=== PATIENT | female | born 2000 | race African-American/Black ===

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

== ENCOUNTER 2019-05-03 23:25 | Emergency (ER) | payer SELFPAY ==
[2019-05-04] MEDS ORDERED: ACETAMINOPHEN 500 MG TAB ONE (00:59)
[2019-05-04] MEDS ORDERED: TETANUS & DIPHTHERIA TOX,ADULT 0.5 ML VIAL ONE (00:59)
[2019-05-04] MEDS ORDERED: IBUPROFEN 400 MG TAB ONE (00:59)
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
[2019-05-04 02:05] VITALS: TEMP 97.8; O2SAT 100
[2019-05-04 02:06] VITALS: BP 106/65
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
== END 2019-05-04 01:44 | disposition home or self-care (01) ==
LOC: ER 23:25
DX: S06.0X9A Concussion with loss of consciousness of unspecified duration, initial encounter (principal); Y04.2XXA Assault by strike against or bumped into by another person, initial encounter; Y93.9 Activity, unspecified; Y92.29 Other specified public building as the place of occurrence of the external cause; F17.290 Nicotine dependence, other tobacco product, uncomplicated
CPT/HCPCS: 70450; 70486; 72125; 76377; 90471; 90714; 99284

== ENCOUNTER 2020-02-29 01:25 | Emergency (ER) | payer SELFPAY ==
[2020-02-29 02:05] LABS: Absolute Lymphocytes (CBC) 2.8 K/uL (0.7-4.9)
[2020-02-29 02:13] LABS: BUN Blood Urea Nitrogen 15 mg/dL (7-18); Bicarbonate 25 mmol/L (21-32); Glucose Level 107 mg/dL (74-106); Potassium 3.4 mmol/L (3.5-5.1); Sodium Level 143 mmol/L (136-145)
[2020-02-29 02:16] LABS: Hematocrit 28.1 % (36.0-45.0); Lymphocytes % 34.8 % (15.3-44.8); MPV 10.1 fL (7.6-11.3)
[2020-02-29 02:37] LABS: Anisocytosis 1+; Blood Morphology Comment NOTED (NOT SEEN); Elliptocytes 1+; Hypochromasia 2+; Platelet Estimate ADEQ; Urine White Blood Cell Casts OK
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
--- NOTE | 2020-02-29 02:43 | ER ---
Nurse's Notes [facility] Name: Kristina Davison Age: 19 yrs Sex: Female : 2000 Arrival Date: 02/29/2020 Time: 01:26 Bed 20 Private MD: Diagnosis: Abnormal uterine and vaginal bleeding, unspecified Presentation: 02/28 01:37 Chief complaint: Patient states: she has been having an unusual period lasting over 2 bb weeks and getting heavier. Pt denies possibility of and denies dizziness. Coronavirus screen: At this time, the client does not indicate any symptoms associated with coronavirus-19. Ebola Screen: No symptoms or risks identified at this time. Initial Sepsis Screen: Does the patient meet any 2 criteria? No. Patient's initial sepsis screen is negative. Does the patient have a suspected source of infection? No. Patient's initial sepsis screen is negative. Risk Assessment: Do you want to hurt yourself or someone else? Patient reports no desire to harm self or others. Onset of symptoms was January 2020. 01:37 Method Of Arrival: Ambulatory bb 01:37 Acuity: MIGUEL A 3 bb Triage Assessment: 01:40 General: Appears in no apparent distress. Behavior is calm, cooperative. Pain: bb Complains of pain in abdomen Quality of pain is described as crampy. Neuro: Level of Consciousness is awake, alert, obeys commands, Oriented to person, place, time, situation. Cardiovascular: No deficits noted. : Reports vaginal bleeding that is heavy flow. 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 - Social history:: Smoking status: Reported history of juuling and/or vaping. Screenin:51 Abuse screen: Denies threats or abuse. Denies injuries from another. Nutritional ao screening: No deficits noted. Tuberculosis screening: No symptoms or risk factors identified. Fall Risk None identified. Assessment: 01:50 General: Appears in no apparent distress. comfortable, obese. Pain: Denies pain. Neuro: ao Level of Consciousness is awake, alert, obeys commands, Oriented to person, place, time, situation, Appropriate for age Moves all extremities. Full function Speech is normal, Facial symmetry appears normal. Cardiovascular: Capillary refill < 3 seconds Patient's skin is warm and dry. Respiratory: Airway is patent Respiratory effort is even, unlabored, Respiratory pattern is regular, symmetrical. GI: Abdomen is obese. : Reports vaginal bleeding that is. : Reports. EENT: No signs and/or symptoms were reported regarding the EENT system. Derm: No signs and/or symptoms reported regarding the dermatologic system. Musculoskeletal: No signs and/or symptoms reported regarding the musculoskeletal system. 02:20 Reassessment: Patient appears in no apparent distress at this time. Patient and/or ao family updated on plan of care and expected duration. Pain level reassessed. 03:08 Reassessment: Patient appears in no apparent distress at this time. Patient and/or ao family updated on plan of care and expected duration. Pain level reassessed. Dc instructions given to patient. Pt agree with POC and to follow up. Vital Signs: 01:37 BP 103 / 54; Pulse 95; Resp 16 S; Temp 99.1(O); Pulse Ox 96% on R/A; Weight 113.4 kg bb (R); Height 5 ft. 2 in. (157.48 cm) (R); Pain 6/10; 03:08 BP 120 / 58; Pulse 92; Resp 16; Pulse Ox 98% ; ao 01:37 Body Mass Index 45.73 (113.40 kg, 157.48 cm) bb ED Course: 01:26 Patient arrived in ED. cl3 01:35 Cee Solitario FNP-C is PHCP. kb 01:35 Jose Ching MD is Attending Physician. kb 01:40 Triage completed. bb 01:40 Arm band placed on Patient placed in an exam room, on a stretcher, on pulse oximetry. bb 01:50 Eddei Singh, ALVA is Primary Nurse. ao 01:50 Basic Metabolic Panel Sent. ao 01:50 CBC with Diff Sent. ao 01:52 Patient has correct armband on for positive identification. Pulse ox on. NIBP on. ao 02:10 Inserted saline lock: 20 gauge in left forearm, using aseptic technique. ao 03:08 No provider procedures requiring assistance completed. IV discontinued, intact, ao bleeding controlled, No redness/swelling at site. Pressure dressing applied. Administered Medications: No medications were administered Outcome: 02:42 Discharge ordered by MD. silverman 03:08 Discharged to home ambulatory. ao 03:08 Condition: good 03:08 Discharge instructions given to patient, Instructed on discharge instructions, follow up and referral plans. Demonstrated understanding of instructions, follow-up care, medications. 03:09 Patient left the ED. ao Signatures: Cee Solitario, RODOLFO-C THERMODYNAMICS PROFESSOR-Kaycee Shepherd RN RN Eddie Burgess RN RN Teena Glynn cl3 Corrections: (The following items were deleted from the chart) 01:41 01:40 : Reports vaginal bleeding that is dia alvares
[2020-02-29 03:11] LABS: Urine Blood 2+ (NEG); Urine Glucose NEGATIVE (NEG); Urine Protein 2+ (NEG); Urine Specific Gravity >1.030 (1.005-1.030)
[2020-02-29 03:14] VITALS: TEMP 99.1
[2020-02-29 03:15] VITALS: BP 120/58; O2SAT 98
== END 2020-02-29 03:09 | disposition home or self-care (01) ==
LOC: ER 01:25
DX: N93.9 Abnormal uterine and vaginal bleeding, unspecified (principal); Z87.891 Personal history of nicotine dependence
CPT/HCPCS: 36415; 80048; 81003; 81025; 85025; 99283